=== PATIENT | male | born 1995 | race Caucasian/White ===

== ENCOUNTER 2017-11-08 01:28 | Emergency (ER) | payer BC ==
[~2017-11-08] VITALS: Ht 182.9 cm; Wt 97.7 kg
[~2017-11-08 01:28] MED LIST: PERCOCET 325 MG1 TA2 PO; ULTRAM 50MG TAB50 MG PO
[2017-11-08 01:31] VITALS: BP 143/94; TEMP 97.3
[2017-11-08] MEDS ORDERED: HUMALOG100 U/ML (01:34)
[2017-11-08 02:30] VITALS: PULSE 56
== END 2017-11-08 02:30 | disposition home or self-care (01) ==
LOC: COL.ER 01:28
DX: S61.210A Laceration without foreign body of right index finger without damage to nail, initial encounter (principal); E10.9 Type 1 diabetes mellitus without complications; Z23 Encounter for immunization; Z79.4 Long term (current) use of insulin; W25.XXXA Contact with sharp glass, initial encounter; Y92.009 Unspecified place in unspecified non-institutional (private) residence as the place of occurrence of the external cause

== ENCOUNTER 2017-11-17 14:31 | Emergency (ER) | payer BC ==
[~2017-11-17 14:31] MED LIST changes: +HUMALOG100 U/ML
[2017-11-17 15:35] VITALS: BP 136/76; PULSE 92; TEMP 97.5
== END 2017-11-17 15:35 | disposition other institution (70) ==
LOC: COL.ER 14:31
DX: S61.211D Laceration without foreign body of left index finger without damage to nail, subsequent encounter (principal); X58.XXXD Exposure to other specified factors, subsequent encounter

== ENCOUNTER 2018-08-14 01:11 | Emergency (ER) | payer BC ==
[~2018-08-14] VITALS: Ht 182.9 cm; Wt 100.0 kg
[2018-08-14 01:19] VITALS: BP 143/73; TEMP 98.3
[2018-08-14 02:31] VITALS: PULSE 104
== END 2018-08-14 02:31 | disposition home or self-care (01) ==
LOC: COL.ER 01:11
DX: E10.9 Type 1 diabetes mellitus without complications (principal); Z76.0 Encounter for issue of repeat prescription
CPT/HCPCS: J1815